=== PATIENT | female | born 1975 | race Caucasian/White ===

== ENCOUNTER → 2017-03-01 | Outpatient (CLI) | payer MEDICAID ==
[~2017-03-01] MED LIST: [UNRECOGNIZED DRUG - OTHER]
--- NOTE | 2017-03-05 08:21 | RADIOLOGY REPORT PS360 ---
DIG MAMM-DX RUEL W/CAD LEFT BREAST ULTRASOUND WITH AXILLA COMPARISON: 04/02/2016, 04/20/2016 INDICATION: Follow-up abnormal mammogram ORDERING PHYSICIAN: Fernando Sun MD PATIENT AGE: 42 years TECHNIQUE: Standard images performed along with spot compression views and left breast ultrasound FINDINGS: There is dense fibroglandular tissue which decreases the sensitivity of mammography. Right breast mammogram: Benign-appearing calcifications are present. Previously noted asymmetric density laterally and superiorly there are some punctate calcifications within the nipple itself unchanged. No malignant appearing mass or malignant appearing microcalcifications evident. Is somewhat less apparent and does appear to compress out as fibroglandular tissue. Left mammogram: Nodularity once again noted in the upper outer aspect of the left breast near the 2:00 region measuring 12 x 11 mm not significant change. No other abnormalities evident within the left breast. Left breast ultrasound: There is a 5 mm cyst at 1:00. At 3:00 there is a 12 x 15 mm hypoechoic nodule once again noted. The margins of the nodule appears somewhat ill-defined along the right lateral aspect. The nodule may be very slightly larger compared to the previous exam and is somewhat more prominent on the mammogram. Fine-needle aspiration is suggested. If this does not aspirate, then biopsy may be performed at the same time with sonographic guidance IMPRESSION: Slight increased prominence of the complex lesion in the lateral aspect of the left breast at 3:00. This does not represent a simple cyst by ultrasound and may be slightly larger with some ill definition of the borders on ultrasound. Mildly suspicious. BI-RADS CATEGORY: 4_Suspicious Abnormality RECOMMENDED FOLLOWUP: Ultrasound-guided fine-needle aspiration of left breast. Core biopsy or mammotome may follow if the lesion does not aspirate (A letter has been sent to the patient regarding results of the study.)
== END ==
LOC: RAD 14:24
DX: R92.8 Other abnormal and inconclusive findings on diagnostic imaging of breast (principal)
CPT/HCPCS: G0204